=== PATIENT | male | born 1945 | race Caucasian/White ===

== ENCOUNTER → 2017-05-28 | Outpatient (CLI) | payer OTHER ==
[~2017-05-28] MED LIST: ACCUNEB SO1.25 MG/1 INH; ALDACTONE25 MG PO; ASPIR 8181 MG PO; ATORVASTATIN CA40 MG PO; AUGMENTIN 875-1 EACH PO; FLOMAX0.4 MG PO; LOPRESSOR50 PO
--- NOTE | ~2017-05-28 | EKG ---
[place] [address] [facility] [employer] [place] [address] ELECTROCARDIOGRAM REPORT Name: SREEKANTH JORDAN Room #: [facility]#: [id number] Admission: 05/28/17 Attend Phys: Suzette Arce MD Discharge: Date of : 45 Report #: [id number] THIS REPORT FOR: //name// [facility] Test Date: 2017-05-28 Test Time: 06:34:27 Pat Name: SREEKANTH JORDAN Department: Room: Gender: M Schedule Announcer: JOANIE : 1945 Requested By: Suzette Arce Order Number: [id number] MD: Jeff Fritz Measurements Intervals [place] Rate: 93 P: 25 SC: 185 QRS: -38 QRSD: 137 T: 104 QT: 406 QTc: 506 Interpretive Statements Sinus rhythm Multiform ventricular premature complexes Left bundle branch block Compared to ECG 06/17/2006 06:45:12 Left bundle-branch block now present Electronically Signed On 05-28-2017 9:08:20 [employer] by Jeff Fritz [email or web address] <ELECTRONICALLY SIGNED> By: Jeff Fritz MD, [facility] 05/28/17 0908 3 3 Jeff Fritz MD, [facility] /EPI
== END | disposition home or self-care (01) ==
LOC: LITH 06:07
DX: N20.0 Calculus of kidney (principal); I11.0 Hypertensive heart disease with heart failure; I50.9 Heart failure, unspecified; E78.00 Pure hypercholesterolemia, unspecified; I25.2 Old myocardial infarction; Z87.440 Personal history of urinary (tract) infections; Z90.49 Acquired absence of other specified parts of digestive tract; Z98.890 Other specified postprocedural states